=== PATIENT | male | born 1940 | race Caucasian/White ===

== ENCOUNTER 2018-04-27 13:29 | Inpatient (IN) | payer OTHER ==
[~2018-04-27] VITALS: Ht 180.3 cm; Wt 95.9 kg
[2018-04-27 14:14] LABS: PLATELET COUNT 250 x10^3mcL (130-400); RED CELL DISTRIBUTION WIDTH 13.6 % (11.5-14.5)
[2018-04-27 14:31] LABS: ALBUMIN 3.9 g/dL (3.4-5.0); ALKALINE PHOSPHATASE 63 U/L (46-116); ALT/SGPT 48 U/L (16-63); AST/SGOT 78 U/L (15-37); BILIRUBIN TOTAL 1.82 mg/dL (0.20-1.00); CALCIUM 6.8 mg/dL (8.5-10.1); CHLORIDE SERUM 97 mmol/L (98-107); CREATININE SERUM 1.4 mg/dL (0.7-1.3); GLUCOSE SERUM 249 mg/dL (74-106); SODIUM SERUM 139 mmol/L (136-145)
[2018-04-27 14:38] LABS: CHOLESTEROL 238 mg/dL (<200)
[2018-04-27 14:39] LABS: HDL CHOLESTEROL 64 mg/dL (40-60)
[2018-04-27 14:59] LABS: UA SPECIFIC GRAVITY 1.015 (1.005-1.035); microscopic required? YES; urine erythrocyte 1+ (NEGATIVE)
[2018-04-27 15:20] LABS: MONOCYTE 2 % (0-7); SEGMENTED NEUTROPHILS 91 % (37-75); rbc morphology (normal/abnorm) NORMAL (NORMAL)
[2018-04-27 17:16] LABS: FREE T4 1.22 ng/dL (0.76-1.46); FREE THYROXINE INDEX 2.8 ug/dL (1.4-4.5); T4(THYROXINE) 8.3 ug/dL (4.7-13.3)
[2018-04-27 17:17] LABS: T3 TOTAL 1.19 ng/mL
[2018-04-27] MEDS ORDERED: ZESTRIL20 MG PO (19:19)
[2018-04-27] MEDS ORDERED: PRILOSEC OTC20 M1 (19:21)
[2018-04-27] MEDS ORDERED: ALLOPURINOL100 MG (19:22)
[2018-04-27 20:25] LABS: CALCIUM 6.4 mg/dL (8.5-10.1); CARBON DIOXIDE 21.1 mmol/L (21-32); CHLORIDE SERUM 106 mmol/L (98-107); CREATININE SERUM 1.2 mg/dL (0.7-1.3); GLUCOSE SERUM 159 mg/dL (74-106); POTASSIUM SERUM 3.2 mmol/L (3.5-5.1); SODIUM SERUM 144 mmol/L (136-145)
[2018-04-27 20:27] LABS: MAGNESIUM 0.7 mg/dL (1.8-2.4)
[2018-04-27 21:07] VITALS: BP 118/62
[2018-04-27 22:06] LABS: POTASSIUM SERUM 2.2 mmol/L (3.5-5.1)
[2018-04-27 22:07] LABS: MAGNESIUM 0.2 mg/dL (1.8-2.4)
[2018-04-27 23:30] VITALS: BP 107/29
[2018-04-28] VITALS (7 sets, daily range): BP systolic 103–148; BP diastolic 44–109; Ht 180.3 cm; Wt 95.9 kg
[2018-04-28 02:01] LABS: CARBON DIOXIDE 24.3 mmol/L (21-32); CHLORIDE SERUM 103 mmol/L (98-107); GLUCOSE SERUM 115 mg/dL (74-106); MAGNESIUM 1.3 mg/dL (1.8-2.4); POTASSIUM SERUM 3.1 mmol/L (3.5-5.1); SODIUM SERUM 140 mmol/L (136-145)
[2018-04-28 02:11] LABS: CALCIUM 5.4 mg/dL (8.5-10.1)
[2018-04-28 05:38] LABS: BASOPHIL % 0.4 % (0-2); PLATELET COUNT 172 x10^3mcL (130-400); RED CELL DISTRIBUTION WIDTH 13.7 % (11.5-14.5)
[2018-04-28 06:04] LABS: CARBON DIOXIDE 20.7 mmol/L (21-32); CHLORIDE SERUM 106 mmol/L (98-107); CREATININE SERUM 1.3 mg/dL (0.7-1.3); GLUCOSE SERUM 97 mg/dL (74-106); MAGNESIUM 1.2 mg/dL (1.8-2.4); POTASSIUM SERUM 3.7 mmol/L (3.5-5.1); SODIUM SERUM 145 mmol/L (136-145)
[2018-04-28 06:05] LABS: CALCIUM 5.8 mg/dL (8.5-10.1)
[2018-04-29 03:30] VITALS: BP 126/78
[2018-04-29 05:47] LABS: BASOPHIL % 0.3 % (0-2); PLATELET COUNT 137 x10^3mcL (130-400); RED CELL DISTRIBUTION WIDTH 13.7 % (11.5-14.5)
[2018-04-29 05:48] LABS: ALKALINE PHOSPHATASE 52 U/L (46-116); ALT/SGPT 42 U/L (16-63); AST/SGOT 126 U/L (15-37); BILIRUBIN TOTAL 2.18 mg/dL (0.20-1.00); CARBON DIOXIDE 23.3 mmol/L (21-32); CHLORIDE SERUM 103 mmol/L (98-107); CREATININE SERUM 0.9 mg/dL (0.7-1.3); GLUCOSE SERUM 100 mg/dL (74-106); SODIUM SERUM 137 mmol/L (136-145); TOTAL PROTEIN, SERUM 6.4 g/dL (6.4-8.2)
[2018-04-29 05:53] LABS: ALBUMIN 2.9 g/dL (3.4-5.0)
[2018-04-29 05:54] LABS: POTASSIUM SERUM 2.8 mmol/L (3.5-5.1)
[2018-04-29 05:55] LABS: CALCIUM 5.9 mg/dL (8.5-10.1)
[2018-04-29 07:45] VITALS: BP 100/67
[2018-04-29 11:05] VITALS: BP 127/82
[2018-04-29 16:00] VITALS: BP 110/79
[2018-04-29 20:00] VITALS: BP 113/65
[2018-04-30] VITALS (7 sets, daily range): BP systolic 105–142; BP diastolic 57–96
[2018-04-30 05:42] LABS: BASOPHIL % 0.3 % (0-2); PLATELET COUNT 133 x10^3mcL (130-400); RED CELL DISTRIBUTION WIDTH 13.6 % (11.5-14.5)
[2018-04-30 05:51] LABS: CARBON DIOXIDE 24.4 mmol/L (21-32); CHLORIDE SERUM 106 mmol/L (98-107); CREATININE SERUM 0.8 mg/dL (0.7-1.3); GLUCOSE SERUM 94 mg/dL (74-106); SODIUM SERUM 137 mmol/L (136-145)
[2018-04-30 05:53] LABS: CALCIUM 5.6 mg/dL (8.5-10.1)
[2018-05-01 03:25] VITALS: BP 111/57
[2018-05-01 05:35] LABS: BASOPHIL % 0.4 % (0-2); PLATELET COUNT 142 x10^3mcL (130-400); RED CELL DISTRIBUTION WIDTH 13.2 % (11.5-14.5)
[2018-05-01 05:45] LABS: CALCIUM 6.3 mg/dL (8.5-10.1); CARBON DIOXIDE 23.7 mmol/L (21-32); CHLORIDE SERUM 106 mmol/L (98-107); CREATININE SERUM 0.8 mg/dL (0.7-1.3); GLUCOSE SERUM 99 mg/dL (74-106); MAGNESIUM 1.4 mg/dL (1.8-2.4); SODIUM SERUM 137 mmol/L (136-145)
[2018-05-01 07:30] VITALS: BP 149/52
[2018-05-01 11:30] VITALS: BP 112/55
[2018-05-01 11:58] VITALS: BP 151/83
[2018-05-01] MEDS ORDERED: METOPROLOL TART25 M1 PO (16:23)
[2018-05-01] MEDS ORDERED: LIPI20 PO (16:23)
[2018-05-01] MEDS ORDERED: CLOPIDOGREL75 M1 PO (16:23)
[2018-05-01] MEDS ORDERED: ECO81 PO (16:24)
[2018-05-01] MEDS ORDERED: LIB25 PO (16:24)
[2018-05-01 16:48] VITALS: BP 151/83
[2018-05-01 17:47] VITALS: BP 134/70
== END 2018-05-01 18:15 | disposition home or self-care (01) | DRG 896 ==
LOC: ED 13:29 → DU 16:11 → ED 16:11 → IC 16:13 → DU 05-01 15:25
PROVIDERS: Emergency Medicine; Family Medicine; Internal Medicine
DX: F10.239 Alcohol dependence with withdrawal, unspecified (principal); I21.A1 Myocardial infarction type 2; N17.0 Acute kidney failure with tubular necrosis; G92 Toxic encephalopathy; I47.1 Supraventricular tachycardia; D68.59 Other primary thrombophilia; I12.9 Hypertensive chronic kidney disease with stage 1 through stage 4 chronic kidney disease, or unspecified chronic kidney disease; E86.0 Dehydration; N18.9 Chronic kidney disease, unspecified; E87.6 Hypokalemia; E83.42 Hypomagnesemia; E83.51 Hypocalcemia; R42 Dizziness and giddiness; R31.9 Hematuria, unspecified; E78.5 Hyperlipidemia, unspecified; Z68.29 Body mass index [BMI] 29.0-29.9, adult
CPT/HCPCS: 83880; 84439; 94150; 97110-GP; 97116-GP; 97530-GP; J0610; J0696; J2060; J2405; J2543; J3411; J3475; J3480; J3490; J7030; J8597; Q0092

== ENCOUNTER 2019-06-15 21:38 | Inpatient (IN) | payer OTHER ==
[~2019-06-15] VITALS: Ht 177.8 cm; Wt 92.5 kg
[~2019-06-15 21:38] MED LIST: ALLOPURINOL100 MG; CLOPIDOGREL75 M1 PO; ECO81 PO; LIB25 PO; LIPI20 PO; METOPROLOL TART25 M1 PO; PRILOSEC OTC20 M1; ZESTRIL20 MG PO
[2019-06-15 22:07] VITALS: Ht 177.8 cm; Wt 92.5 kg
--- NOTE | 2019-06-15 22:24 | NUR ---
PT. BIBA C/O N/V/D WITH INTERMITTENT DIZZINESS SINCE FRIDAY, PT. ALSO PRESENTS WITH INTERMITTENT SHAKINESS, PT. STATES HE HAS NOT ATE FOR 1 DAY, PT. STATES HE IS VOMITTING 2-3 TIMES A DAY, YELLOW COLOR, DIARRHEA 1 X DAY LOOSE, BROWN, DENIES URINARY SYMPTOMS, DENIES FEVER & CHILLS, AAOX4, FAMILY AT BEDSIDE, PT. ALSO STATES HE FEELS ANXIOUS, MSE DONE BY DR. RUBI, PLACED ON CURING SUPERVISOR, PULSE OX, WILL MONITOR.
[2019-06-15 23:01] LABS: BASOPHIL % 0.1 % (0-2); PLATELET COUNT 236 x10^3mcL (130-400); RED CELL DISTRIBUTION WIDTH 14.2 % (11.5-14.5)
[2019-06-15 23:25] LABS: ALBUMIN 3.7 g/dL (3.4-5.0); ALKALINE PHOSPHATASE 86 U/L (46-116); ALT/SGPT 20 U/L (16-63); AST/SGOT 37 U/L (15-37); BILIRUBIN TOTAL 1.27 mg/dL (0.20-1.00); CARBON DIOXIDE 19.3 mmol/L (21-32); CHLORIDE SERUM 95 mmol/L (98-107); CREATININE SERUM 1.1 mg/dL (0.7-1.3); GLUCOSE SERUM 163 mg/dL (74-106); LIPASE 105 IU/L (73-393); SODIUM SERUM 138 mmol/L (136-145)
[2019-06-15 23:29] LABS: CALCIUM 5.7 mg/dL (8.5-10.1)
--- NOTE | 2019-06-15 23:34 | NUR ---
TO CAT SCAN VIA [facility]
--- NOTE | 2019-06-15 23:40 | NUR ---
RETURNED FROM CT[facility]
--- NOTE | 2019-06-16 01:20 | NUR ---
REC'D PT FROM ED VIA [facility] ACCOMPANIED BY PT'S SON AND NURSE. PT TRANSFERRED FROM BED TO BED. ADM WITH CC OF N/V/D AND DIZZINESS. TELE 5. DENIES CP, DIZZINESS, OR PALPITATIONS. DENIES RESP DISTRESS OR SOB. BREATHING EVEN/UNLABORED ON 2L O2 VIA NC. NO EDEMA NOTED. BUE TREMORS. PT REPORTS DRINKING ALCOHOL EVERY DAY WITH HX SZ. LAST SZ APRIL 2018. SZ PADDING APPLIED. ABD SOFT/ROUND/NONTENDER. LAST BM AT HOME, [place] LIGHT BROWN. VOIDING FREELY. GEN WEAKNESS. USUALLY AMBULATES BY SELF. SKIN INTACT. IV TO RAC PATENT AND INFUSING NS @ 100 ML/HR, K RIDER @ 50 ML/HR, AND MG RIDER @ 25 ML/HR. IV TO LH PATENT AND IFNSUING CALCIUM GLUCONATE @ 60 ML/HR. SITES WNL. ORIENTED TO DEVICES AND SURROUNDINGS. CALL LIGHT WITHIN REACH, BED AT LOWEST POSITION. WILL CONTINUE TO MONITOR.
--- NOTE | 2019-06-16 02:15 | NUR ---
PT REQUESTING MEDICATION FOR DIZZINESS. DR. BALLARD MADE AWARE VIA [facility]
[2019-06-16 02:33] LABS: CHOLESTEROL/HDL RATIO 2.3
[2019-06-16 02:41] LABS: FREE T4 1.48 ng/dL (0.76-1.46); FREE THYROXINE INDEX 3.3 ug/dL (1.4-4.5); T4(THYROXINE) 8.5 ug/dL (4.7-13.3)
[2019-06-16 02:50] LABS: T3 TOTAL 1.02 ng/mL
--- NOTE | 2019-06-16 03:18 | NUR ---
PT RESTING IN BED WITH EYES CLOSED. NO SIGNS OF DISTRESS NOTED. BREATHING EVEN/UNLABORED ON RA. CALL LIGHT WITHIN REACH, BED AT LOWEST POSITION, BED ALARM ON. WILL CONTINUE TO MONITOR.
[2019-06-16 03:19] VITALS: BP 157/80
[2019-06-16 04:11] LABS: UA SPECIFIC GRAVITY 1.025 (1.005-1.035); microscopic required? YES; urine erythrocyte 1+ (NEGATIVE)
[2019-06-16 04:19] LABS: ALKALINE PHOSPHATASE 77 U/L (46-116); ALT/SGPT 19 U/L (16-63); AST/SGOT 34 U/L (15-37); BILIRUBIN TOTAL 1.33 mg/dL (0.20-1.00); CARBON DIOXIDE 22.3 mmol/L (21-32); CHLORIDE SERUM 99 mmol/L (98-107); CREATININE SERUM 0.8 mg/dL (0.7-1.3); GLUCOSE SERUM 145 mg/dL (74-106); MAGNESIUM 1.1 mg/dL (1.8-2.4); PHOSPHOROUS 3.4 mg/dL (2.5-4.9); SODIUM SERUM 139 mmol/L (136-145); TOTAL PROTEIN, SERUM 7.5 g/dL (6.4-8.2)
[2019-06-16 04:27] LABS: ALBUMIN 3.2 g/dL (3.4-5.0)
[2019-06-16 04:28] LABS: CALCIUM 5.4 mg/dL (8.5-10.1); POTASSIUM SERUM 2.5 mmol/L (3.5-5.1)
--- NOTE | 2019-06-16 04:36 | NUR ---
SPOKE TO DR. BALLARD AND DR. EMMANUEL INFORMING OF UPDATED LABS: K 2.5, CA 5.4, AND MG 1.1. AN ADDITIONAL 40 MEQ K RIDER TO BE GIVEN AND TIMES OF AM LABS CHANGED.
[2019-06-16 04:43] LABS: AMPHETAMINE QUAL UR NONE DETECTED (See below)
[2019-06-16 05:43] VITALS: BP 158/89
--- NOTE | 2019-06-16 06:30 | NUR ---
PT RESTING IN BED WITH EYES CLOSED. AWAKENS WITH VERBAL STIMULI. BREATHING EVEN/UNLABORED ON RA. REPORTS FEELING A LITTLE BETTER. BUE TREMORS WHILE HOLDING CUP. DUE LIBRIUM GIVEN. CALL LIGHT WITHIN REACH, BED AT LOWEST POSITION. WILL ENDORSE TO DAY NURSE.
--- NOTE | 2019-06-16 07:30 | NUR ---
RECEIVED PATIENT IN BED, ALERT AND ORIENTED ABLE TO VERBALIZE NEEDS WELL. IVF INFUSING WELL, SITE PATENT. GENERALIZED WEAKNESS, PT STILL HAS SLIGHT TREMORS NOTED BUE. IVF INFUSING WELL SITE PATENT ON RT A/C, HL PATENT LEFT HAND. RESP EVEN AND UNLABORED, LUNGS CLEAR TELE 5 NSR AT THIS TIME. MOVES ALL EXTREM WELL IN BED. DENIES ANY N/V/D AT THIS TIME. PATIENT'S SKIN IN WARM DRY AND INTACT, BUT DOES HAVE EXCORIATION NOTED IN PERIANAL AREA. WOUND CARE STARTED, AND PATIENT REMINDED TO TURN FROM SIDE TO SIDE. AREA CLEANSED AND HYDRAGUARD APPLIED. WILL CONTINUE TO MONITOR.
[2019-06-16 07:45] VITALS: BP 142/70
[2019-06-16 09:29] LABS: BASOPHIL % 0.6 % (0-2); PLATELET COUNT 206 x10^3mcL (130-400); RED CELL DISTRIBUTION WIDTH 14.3 % (11.5-14.5)
[2019-06-16 09:43] LABS: CARBON DIOXIDE 21.8 mmol/L (21-32); CHLORIDE SERUM 103 mmol/L (98-107); CREATININE SERUM 0.9 mg/dL (0.7-1.3); GLUCOSE SERUM 143 mg/dL (74-106); SODIUM SERUM 139 mmol/L (136-145)
[2019-06-16 09:52] LABS: CALCIUM 5.6 mg/dL (8.5-10.1)
[2019-06-16 12:04] VITALS: BP 134/70
--- NOTE | 2019-06-16 12:35 | NUR ---
PATIENT'S PLAN OF CARE WAS DISCUSSED AND REVIEWED WITH CABINET INSTALLER:LILI ALBERTS. I HAVE REVIEWED THE DATA COLLECTION BY CABINET INSTALLER (NAME):LILI ALBERTS. ENTERED ON (DATE/TIME):06/16/19. I CONCUR WITH THE DATA AND ANY EXCEPTIONS OR COMMENTS ARE LISTED BELOW:
--- NOTE | 2019-06-16 13:10 | NUR ---
PATIENT REMAINS IN BED. ALERT ORIENTED SPEECH CLEAR, DENIES ANY H/A DOES STATE THAT HE HAS A LITTLE DIZZINESS IF HE MOVES HIS HEAD TOO FAST. BUT PER PATIENT HE FEELS MUCH BETTER TODAY. DENIES ANY N/V/D. TOLERATING FULL LIQUID DIET WELL. WILL CONTINUE TO MONTIOR.
[2019-06-16 16:21] VITALS: BP 119/64
--- NOTE | 2019-06-16 18:18 | NUR ---
PATIENT SITTING UP IN BED EATING DINNER TRAY. ALERT ORIENTED. DENIES ANY H/A OR DIZZINESS OR N/V/D AT THIS TIME. IVF INFUSING WELL. SITE PATENT. HYDROGUARD APPLIED ORDERED TO PERIANAL AREA. APPEARS A LITTLE LESS RED.
--- NOTE | 2019-06-16 19:38 | NUR ---
AWAKE AND ALERT, WATCHING TV. ORIENTED TO NAME, PLACE, TIME AND SITUATION. CALM AND COOPERATIVE WITH CARE. SLIGHT TREMORS TO HANDS. HOB ELEVATED 30 DEG. SIDE RAILS PADDED. BREATHING EVEN AND UNLABORED ON ROOM AIR. IVF INFUSING WELL TO LEFT HAND IV. SALINE LOCK TO RIGHT AC. ERYTHEMA NOTED TO PERIANAL AREA, HYDRAGUARD APPLIED. PT ABLE TO REPOSITION SELF IN BED. ENCOURAGED TO REPOSITION FREQUENTLY. CALL LIGHT WITHIN EASY REACH.
[2019-06-16 19:49] VITALS: BP 103/61
--- NOTE | 2019-06-16 21:05 | NUR ---
INFORMED DR. EMMANUEL HELD DUE LOPRESSOR DUE TO SBP 99
--- NOTE | 2019-06-17 00:18 | NUR ---
eyes closed, breathing even and unlabored. hob elevated 30 deg. side rails remained padded. call light within easy reach. ivf infusing well.
[2019-06-17 05:47] VITALS: BP 129/67
[2019-06-17 06:07] LABS: BASOPHIL % 0.3 % (0-2); PLATELET COUNT 170 x10^3mcL (130-400); RED CELL DISTRIBUTION WIDTH 14.1 % (11.5-14.5)
--- NOTE | 2019-06-17 06:37 | NUR ---
eyes closed, easily awakened. no seizures noted during shift. breathing even and unlabored. call light within easy reach
[2019-06-17 06:58] LABS: CHLORIDE SERUM 108 mmol/L (98-107); CREATININE SERUM 0.9 mg/dL (0.7-1.3); GLUCOSE SERUM 95 mg/dL (74-106); MAGNESIUM 1.7 mg/dL (1.8-2.4); PHOSPHOROUS 1.8 mg/dL (2.5-4.9); SODIUM SERUM 144 mmol/L (136-145)
[2019-06-17 07:01] LABS: CALCIUM 5.5 mg/dL (8.5-10.1)
--- NOTE | 2019-06-17 07:09 | NUR ---
EYES CLOSED, BREATHING EVEN AND UNLABORED ON ROOM AIR. IN NO ACUTE DISTRESS. ENDORSED TO NURSE LILI
[2019-06-17 07:25] VITALS: BP 109/48
--- NOTE | 2019-06-17 07:30 | NUR ---
RECEIVED PATIENT IN BED AWAKE ALERT AND ORIENTED. IVF INFUSING WELL TO LEFT F/A. HL PATENT ON RT A/C. TELE [address] NSR. S[address] PRECAUTIONS IN PLACE. DENIES ANY N/V/D AT THIS TIME. YAMILKA ANAL AREA REMAINS EXCORIATED, BUT DOES APPEAR TO BE A LITTLE LESS RED. HYDROGUARD APPLIED ORDERED. WILL CONTINUE TO MONITOR.
--- NOTE | 2019-06-17 09:02 | NUR ---
PATIENT IS SITTING UP IN BED, AWAKE ALERT AND ORIENTED. PATIENT C/O BEING SLIGHTLY "LIGHT HEADED." MEDICATED WITH ANTIVERT PO ORDERED. WILL CONTINUE TO MONITOR. PHYSICAL THERAPY AT BEDSIDE TO EVAL PATIENT AT THIS TIME.
--- NOTE | 2019-06-17 09:15 | NUR ---
PATIENT UP OOB AND ASSITED TO [facility]. PATIENT HAD LOOSE STOOL X 1 AT THIS TIME. SPECIMEN COLLECTED AND SENT TO THE LAB ORDERED.
[2019-06-17] MEDS ORDERED: MECLIZINE HCL12.5 MG PO (11:18)
[2019-06-17 11:45] VITALS: BP 128/69
[2019-06-17 13:13] VITALS: BP 128/69
--- NOTE | 2019-06-17 14:25 | NUR ---
1. Recommend continuing full liquid diet at this time. Patient to be D/C today.
--- NOTE | 2019-06-17 14:25 | NUR ---
Initial Nutrition Assessment: 251T/B [place] HR Dx: Dehydration, hypokalemia, hypocalcemia PMHx: HTN PSHx: none Labs: K 3.0L, P 1.8L, MG 1.7L Meds: Antivert, Ativan, Colace, flagyl, folic acid, Lipitor, Lopressor, theragran-M, Vitamin B-1, zofran Diet: Full liquid PO Intake: (06/16) breakfast 100% Ht: 177.8 cm (70") Wt: 92.5 kg (203#) BMI: 29.3 kg/m2 Bed scale: 92.5 kg IBW: 166# (75 kg) %IBW: 122 UBW: 203# Age: 79/M Food Allergies: NKFA Skin: ecchymosis perineal area Hari: 18 Edema: none GI: loose stools Last BM: 06/15 Per H&P, Pt is a 79 Yo male with PMH of HTN BIBA from home for nausea and vomiting and dizziness for 3 days. He mentioned that he has been vomiting twice daily for the last 3 days non bloody, bilious vomit, and he hasn't been eating because he was scared the he will vomit again. Patient also have had non bloody diarrhea 2-3 episodes daily for the last 3 days as well. RDN Visit (06/17): Patient was alert and oriented and said that he ate 100% of his breakfast this morning and 100% dinner last night. Patient said that he will be getting D/C today. D/C orders as in place. Problem with: N/V/D/C: none Problems with: Chewing/Swallowing: none Current appetite: good Recent wt change: none %wt change: n/a Vitamin/Supplement use: none Special diet at home: regular Physical activity: walking Nutrition education given: none provided at this time Food-drug interactions: lipitor- avoid grapefruit Education given: n/a Estimated Nutritional Needs Based on adjusted body weight 79 kg Energy: 7476-3456 kcal/d (25-30 kcal/kg) Protein: 79-95 g/d (1.0-1.2 g/kg) - preserve LBM Fluid: 3800-2365 ml/d (1 ml/kcal) or per doctor Nutrition Diagnosis 1. Altered nutrition related lab values related to dehydration as evidenced by K:3.0L, P 1.8L Intervention 1. Recommend continuing full liquid diet at this time. Patient to be D/C today. Monitor/Evaluate Goal: PO intake at least 75% of estimated needs Monitor: PO intake, Labs, GI function F/U in 3-5 days as moderate risk 06/20-
--- NOTE | 2019-06-17 14:37 | NUR ---
PATIENT'S PLAN OF CARE WAS DISCUSSED AND REVIEWED WITH GEOSCIENCE TECHNICIAN:LILI ALBERTS. I HAVE REVIEWED THE DATA COLLECTION BY GEOSCIENCE TECHNICIAN (NAME):LILI ALBERTS. ENTERED ON (DATE/TIME):06/17/19. I CONCUR WITH THE DATA AND ANY EXCEPTIONS OR COMMENTS ARE LISTED BELOW:
--- NOTE | 2019-06-17 15:15 | NUR ---
DR DE JESUS NOTIFIED OF PATIENT'S K+ LEVEL OF 3.0. NEW ORDERS RECEIVED AND GIVEN. PATIENT READY FOR D/C HOME. HL X 2 AND TELE DC'D. DISCHARGE INSTRUTIONS GIVEN. EDUCATION PROVIDED AND PERSONAL BELONINGS LIST SIGNED. ATIENT REFUSED TO HAVE PICTURE TAKEN OF HIS PERIANAL AREA EXCORIATION UPON DISCHARGE. AWAITING DR TO WRITE SCRIP FOR PATIENT'S MCLEZINE.
== END 2019-06-17 15:20 | disposition home or self-care (01) | DRG 897 ==
LOC: ED 21:38 → DU 23:43
PROVIDERS: Emergency Medicine; Internal Medicine; ADMIT Internal Medicine
DX: F10.231 Alcohol dependence with withdrawal delirium (principal); I42.6 Alcoholic cardiomyopathy; E86.0 Dehydration; R11.2 Nausea with vomiting, unspecified; R19.7 Diarrhea, unspecified; E87.6 Hypokalemia; E83.51 Hypocalcemia; K21.9 Gastro-esophageal reflux disease without esophagitis; E83.42 Hypomagnesemia; I10 Essential (primary) hypertension; Z68.29 Body mass index [BMI] 29.0-29.9, adult; Y90.0 Blood alcohol level of less than 20 mg/100 ml; Z79.82 Long term (current) use of aspirin
CPT/HCPCS: 84439; 87046; 87046-59; 97112-GP; C9113; G0378; G0480; J0610; J3475; J3480; J3490; J7030; J7040; J8597; Q0092